=== PATIENT | male | born 1965 | race Caucasian/White ===

== ENCOUNTER 2020-01-15 17:40 | Emergency (ER) | payer MEDICAID ==
[~2020-01-15] VITALS: Ht 167.6 cm; Wt 81.2 kg
--- NOTE | 2020-01-15 17:55 | NUR ---
bib c/o blurring of vision x yesterday. was at clinic for hypertension. Patient a/ox4, breathing even and unlabored, no sob noted, needs attended, kept comfortable. Changed into a gown, attached to the engine monitor.
--- NOTE | 2020-01-15 18:10 | NUR ---
ER VISUAL ACUITY WITH GLASSES IS ZERO. PATIENT UNABLE TO SEE ANY LETTER. Addendum: 01/15/20 at 1811 by JESUS CORRECTION: PATIENT STATED HE COULDN'T SEE ANY LETTER FROM THE BOARD. BUT HAS LIGHT PERCEPTION.
--- NOTE | 2020-01-15 18:15 | NUR ---
IV LINE ESTABLISHED ON RIGHT AC G18, BLOOD DRAWN AND SENT TO LAB. US TECH AT BEDSIDE.
[2020-01-15 18:35] LABS: BASOPHILS # (AUTO) 0.1 /CMM (0.0-0.2); EOSINOPHILS % (AUTO) 1.5 % (0.0-6.0); HEMATOCRIT 47 % (39-51); HEMOGLOBIN 15.3 g/dL (13.5-17.5); LYMPHOCYTES # (AUTO) 2.6 /CMM (0.8-4.8); LYMPHOCYTES % (AUTO) 30.3 % (20.0-44.0); MEAN CORPUSCULAR HGB CONC 33 g/dl (31.0-36.0); MEAN CORPUSCULAR VOLUME 96 fL (80-96); MONOCYTES # (AUTO) 0.8 /CMM (0.1-1.30); MONOCYTES % (AUTO) 8.7 % (2.0-12.0); NEUTROPHILS % (AUTO) 58.5 % (43.0-81.0); PLATELET COUNT (AUTO) 108 /CMM (150-450); RED BLOOD CELL COUNT(AUTO) 4.86 MIL/uL (4.5-6.0); WHITE BLOOD COUNT (AUTO) 8.6 K/uL (4.3-11.0)
[2020-01-15 18:46] LABS: CALCIUM, SERUM 8.5 mg/dL (8.5-10.1); CREATININE 1.1 mg/dL (0.6-1.3); POTASSIUM 3.6 mmol/L (3.5-5.1)
[2020-01-15] MEDS ORDERED: IOHEXOL-350 100 ML VIAL IV ONE (18:55)
[2020-01-15] MEDS ORDERED: CT SWABBABLE VALVE TRANS SET 1 EA INFUS.SET MC ONE (18:56)
--- NOTE | 2020-01-15 18:59 | NUR ---
PATIENT TAKEN TO RADIOLOGY.
--- NOTE | 2020-01-15 19:00 | NUR ---
denise called,spoke with hetal, report given and requested that facesheet be faxed to [phone]
--- NOTE | 2020-01-15 19:05 | NUR ---
CALLED [facility], SPOKE TO CHAYO, FAXED FACESHEET AND CLINICALS
--- NOTE | 2020-01-15 19:13 | NUR ---
CALLED LOCATED WITHIN [facility] NO OPTHALMOLOGIST AVAILABLE.
--- NOTE | 2020-01-15 19:16 | NUR ---
CALLED [facility]SF[facility] LINE, NO BED AVAILABLE.
--- NOTE | 2020-01-15 19:19 | NUR ---
RETURNED FROM CT SCAN. HOOKED TO MONITOR.
--- NOTE | 2020-01-15 19:26 | NUR ---
CALLED LAB FOR COVID SWAB
--- NOTE | 2020-01-15 19:28 | NUR ---
10MINS SUBGRADE TESTER, TOOK AMLODIPINE 10MG
--- NOTE | 2020-01-15 19:30 | NUR ---
ENDORSED TO KRISSY QUICK.
--- NOTE | 2020-01-15 19:33 | NUR ---
CALLED [facility] FOR CTA READ
--- NOTE | 2020-01-15 19:43 | NUR ---
COVID SWAB SENT TO LAB
--- NOTE | 2020-01-15 20:00 | NUR ---
RECEIVED CALL FROM HERMAN WITH [facility], FAXED FACESHEET AND CLINICALS
--- NOTE | 2020-01-15 20:06 | NUR ---
CALLED [facility] SPOKE TO TOSHA, REFERRED TO THE [facility] DUE TO NO COMBINATION WINDOW INSTALLER
--- NOTE | 2020-01-15 20:15 | NUR ---
DR NGO ON THE PHONE WITH PHYSICIAN FROM [facility]
--- NOTE | 2020-01-15 20:17 | NUR ---
SPEAKING TO [facility] REGARDING PT. SPOKE TO PT AND HIS REGARDING CARE.
--- NOTE | 2020-01-15 20:54 | NUR ---
RECEIVED A CALL FROM CHAYO AT [facility]. PT GOT ACCPTED AT [facility] ER TO ER BY SAL ONEILL. # FOR REPORT: [phone]
--- NOTE | 2020-01-15 21:02 | NUR ---
COVID RESULT: NEG
--- NOTE | 2020-01-15 21:03 | NUR ---
[facility] TRANSFER TO [facility] HALINA ZAMORA ETA 2300 HOURS
--- NOTE | 2020-01-15 21:17 | NUR ---
UPGRADED TO [facility] ETA [id number]
[2020-01-15] MEDS ORDERED: hydrALAZINE HCL IV 20 MG VIAL IV ONE (21:30)
[2020-01-15] MEDS ORDERED: ENALAPRILAT INJ (1.25 MG/ML) 1.25 MG/ML VIAL IV ONE (21:41)
[2020-01-15] MEDS ORDERED: ENALAPRILAT INJ (1.25 MG/ML) 1.25 MG/ML VIAL IV PRN (22:00)
--- NOTE | 2020-01-15 22:04 | NUR ---
REPORT GIVEN TO NATHANIEL RN FOR GRETEL
[2020-01-15 23:05] VITALS: BP 156/78
--- NOTE | 2020-01-15 23:09 | NUR ---
REPORT GIVEN TO ANDRÉS. PT TRANSFERED.
--- NOTE | 2020-01-15 23:10 | NUR ---
[place] mail messenger contractor AT THE BED SIDE TO RECREATIONAL THERAPY AIDE THE PT. REPORT GIVEN
== END 2020-01-15 23:10 | disposition short-term general hospital (02) ==
LOC: ER 17:49
DX: H33.23 Serous retinal detachment, bilateral (principal); H43.13 Vitreous hemorrhage, bilateral; I10 Essential (primary) hypertension; E11.36 Type 2 diabetes mellitus with diabetic cataract; I65.23 Occlusion and stenosis of bilateral carotid arteries; Z20.828 Contact with and (suspected) exposure to other viral communicable diseases
CPT/HCPCS: 36415; 70496; 76536; 80048; 85025; 85730; 87426; 96374; 99291; C9803; J3490; Q9967

== ENCOUNTER 2022-10-19 14:10 | Emergency (ER) | payer MEDICAID, OTHER ==
[~2022-10-19] VITALS: Ht 165.1 cm; Wt 83.0 kg
--- NOTE | 2022-10-19 14:30 | NUR ---
BIBWIFE FOR C/O hip PAIN 01/16 X 2 WEEKS AND RIGHT FOREARM PAIN 08/16, this morning rt knee felt weak then fall in the bathroom. known diabetic and hpn pt. took meds regularly. AOX4, PUT ON MONITOR, PT IS WITH AT BEDSIDE
--- NOTE | 2022-10-19 15:05 | NUR ---
DR WINSTON AT BEDSIDE FOR EVAL
--- NOTE | 2022-10-19 15:11 | NUR ---
22G INSERTED RT HAND, BLD DRAWN, SENT TO LAB
[2022-10-19] MEDS ORDERED: KETOROLAC TROMETHAMINE 15 MG/ML VIAL ONE (15:13)
[2022-10-19] MEDS ORDERED: CYCLOBENZAPRINE 10 MG TABLET ONE (15:13)
[2022-10-19] MEDS: CYCLOBENZAPRINE 10 MG TABLET PO ONE (15:15)
[2022-10-19] MEDS: KETOROLAC TROMETHAMINE INJ 30 MG/ML VIAL IV ONE (15:15)
[2022-10-19 15:27] LABS: BASOPHILS # (AUTO) 0.2 K/uL (0.0-0.2); BASOPHILS % (AUTO) 1.6 % (0.0-2.0); EOSINOPHILS % (AUTO) 0.3 % (0.0-6.0); HEMATOCRIT 40 % (39-51); LYMPHOCYTES # (AUTO) 2.4 K/uL (0.8-4.8); LYMPHOCYTES % (AUTO) 22.3 % (20.0-44.0); MEAN CORPUSCULAR HGB CONC 33 g/dl (31.0-36.0); MEAN CORPUSCULAR VOLUME 89 fL (80-96); MONOCYTES # (AUTO) 0.8 K/uL (0.1-1.30); MONOCYTES % (AUTO) 7.2 % (2.0-12.0); NEUTROPHILS # (AUTO) 7.2 K/uL (1.8-8.9); NEUTROPHILS % (AUTO) 68.6 % (43.0-81.0); PLATELET COUNT (AUTO) 114 K/uL (150-450); RED BLOOD CELL COUNT(AUTO) 4.46 MIL/uL (4.5-6.0); WHITE BLOOD COUNT (AUTO) 10.6 K/uL (4.3-11.0)
[2022-10-19 16:56] LABS: BILIRUBIN,TOTAL 0.3 mg/dL (0.2-1.0); POTASSIUM 4.6 mmol/L (3.5-5.1); TOTAL PROTEIN, SERUM 7.7 g/dL (6.4-8.2)
[2022-10-19 17:36] LABS: CALCIUM, SERUM 8.8 mg/dL (8.5-10.1)
[2022-10-19 17:37] LABS: BILIRUBIN,DIRECT 0.1 mg/dL (0.0-0.2); CREATININE 2.2 mg/dL (0.6-1.3)
[2022-10-19 17:49] LABS: BILIRUBIN,URINE NEGATIVE (NEGATIVE); COLOR,URINE YELLOW (YELLOW); LEUKOCYTE ESTERASE ,URINE NEGATIVE (NEGATIVE); NITRITE, URINE NEGATIVE (NEGATIVE); PROTEIN,URINE 3+ mg/dl (NEGATIVE); UGLUCOSE NEGATIVE (NEGATIVE); UROBILINOGEN,URINE 0.2 EU/dL (0.2)
[2022-10-19] MEDS ORDERED: AMLODIPINE BESYLATE 10 MG TABLET ONE (17:58)
[2022-10-19] MEDS: AMLODIPINE BESYLATE 5 MG TABLET PO ONE (18:00)
[2022-10-19 18:16] VITALS: TEMP 98
[2022-10-19 18:54] LABS: BACTERIA,URINE None seen /HPF (None Seen); MUCUS,URINE Many /LPF (None Seen); SQUAMOUS EPITHELIAL CELL,UR None Seen /HPF (None Seen); WBC,URINE 0-2 /HPF (0-3)
--- NOTE | 2022-10-19 19:07 | NUR ---
Patient is resting comfortably in bed with eyes closed. Easily aroused.
--- NOTE | 2022-10-19 19:22 | NUR ---
GAVE REPORT TO NANCY QUICK FOR GRETEL
--- NOTE | 2022-10-19 19:24 | NUR ---
Collins murillo in EDM - 10/19/22 at 1954 by INÉS NOTIFIED BY DR. JACKSON THAT THE PT WILL BE TRANSFERED OUT AWAITING A CALL BACK FOR UPDATE
--- NOTE | 2022-10-19 19:48 | NUR ---
BLADDER SCAN DONE- 184ML OF URINE
--- NOTE | 2022-10-19 20:06 | NUR ---
[facility] CALLED WITH ACCEPTANCE INFO ROOM NUMBER [id number] UNDER THE CARE OF DR. BENJI MATHUR FOR TRANSPORT IS 1000 ALSO FAXED PT CLINICALS TO [phone]
--- NOTE | 2022-10-19 20:14 | NUR ---
CM [phone]
--- NOTE | 2022-10-19 20:28 | NUR ---
PER RADIOLOGY DEPARTMENT, TAX ANALYST WILL NOT GET HERE UNTIL ANOTHER [address] APARICIO MADE AWARE
[2022-10-19 20:38] VITALS: BP 159/83
--- NOTE | 2022-10-19 20:56 | NUR ---
[facility]
--- NOTE | 2022-10-19 21:01 | NUR ---
SPOKE TO CM AND INFORMED HIM THAT MRI WAS NOT ABLE TO BE COMPLETED HERE. DR. LEBLANC MADE AWARE, STILL ACCEPTING THE PATIENT.
== END 2022-10-19 21:10 | disposition short-term general hospital (02) ==
LOC: ER 14:12
DX: S99.811A Other specified injuries of right ankle, initial encounter (principal); I10 Essential (primary) hypertension; E11.9 Type 2 diabetes mellitus without complications; W19.XXXA Unspecified fall, initial encounter; Y93.89 Activity, other specified; Y92.89 Other specified places as the place of occurrence of the external cause; Y99.8 Other external cause status
CPT/HCPCS: 99285; 74176; 96374; 73564; 85025; 80048; 80076; 81001; 36415; J1885

== ENCOUNTER 2023-10-04 12:47 | Emergency (ER) | payer MEDICAID, OTHER ==
[~2023-10-04] VITALS: Ht 165.1 cm; Wt 78.5 kg
[2023-10-04 13:21] LABS: BASOPHILS # (AUTO) 0.1 K/uL (0.0-0.2); EOSINOPHILS # (AUTO) 0.2 K/uL (0.0-0.7); EOSINOPHILS % (AUTO) 1.4 % (0.0-6.0); HEMATOCRIT 41 % (39-51); HEMOGLOBIN 13.2 g/dL (13.5-17.5); LYMPHOCYTES # (AUTO) 2.3 K/uL (0.8-4.8); LYMPHOCYTES % (AUTO) 20.7 % (20.0-44.0); MEAN CORPUSCULAR HEMOGLOBIN 29 PG (26.0-33.0); MEAN CORPUSCULAR HGB CONC 32 g/dl (31.0-36.0); MEAN CORPUSCULAR VOLUME 89 fL (80-96); MONOCYTES # (AUTO) 0.6 K/uL (0.1-1.30); MONOCYTES % (AUTO) 5.5 % (2.0-12.0); NEUTROPHILS # (AUTO) 7.8 K/uL (1.8-8.9); NEUTROPHILS % (AUTO) 71.4 % (43.0-81.0); PLATELET COUNT (AUTO) 117 K/uL (150-450); RED BLOOD CELL COUNT(AUTO) 4.65 MIL/uL (4.5-6.0); RED CELL DISTRIBUTION WIDTH 15.1 % (11.5-15.0); WHITE BLOOD COUNT (AUTO) 10.9 K/uL (4.3-11.0)
[2023-10-04] MEDS ORDERED: DAPA10TA PO (13:25)
[2023-10-04] MEDS ORDERED: GLIP10TA11 PO (13:25)
[2023-10-04] MEDS ORDERED: CHLO25TA2 PO (13:25)
[2023-10-04 13:32] LABS: CALCIUM, SERUM 8.6 mg/dL (8.5-10.1); CARBON DIOXIDE 25 mmol/L (21-32); CHLORIDE 103 mmol/L (98-107); CREATININE 2.6 mg/dL (0.6-1.3); GLUCOSE 198 mg/dL (74-106); INR 0.98 (0.91-1.10); PARTIAL THROMBOPLASTIN TIME 31.4 SEC (24.3-34.3); POTASSIUM 4.3 mmol/L (3.5-5.1); PROTHROMBIN TIME 10.1 SECS (9.2-11.1); SODIUM SERUM 136 mmol/L (136-145); UREA NITROGEN, BLOOD 33 mg/dL (7-18)
[2023-10-04 14:00] VITALS: TEMP 98
[2023-10-04 15:19] LABS: APPEARANCE,URINE Clear (CLEAR); BILIRUBIN,URINE Negative (NEGATIVE); BLOOD, URINE Small Ery/uL (NEGATIVE); COLOR,URINE YELLOW (YELLOW); KETONES,URINE Negative (NEGATIVE); LEUKOCYTE ESTERASE ,URINE Negative (NEGATIVE); NITRITE, URINE Negative (NEGATIVE); PH,URINE 5.5 (5.0-8.0); PROTEIN,URINE >=300 mg/dl (NEGATIVE); UGLUCOSE 500 MG/DL mg/dL (NEGATIVE); UROBILINOGEN,URINE 0.2 EU/dL (0.2)
[2023-10-04 15:29] LABS: ADD URINE CULTURE NO; BACTERIA,URINE None seen /HPF (None Seen); SQUAMOUS EPITHELIAL CELL,UR None Seen /HPF (None Seen); WBC,URINE NONE SEEN /HPF (0-3)
[2023-10-04 16:08] VITALS: BP 171/93; O2SAT 97
[2023-10-04] MEDS ORDERED: ASPIRIN 300 MG/SUPP.RECT RC ONE (16:42)
[2023-10-04] MEDS: ASPIRIN 300 MG/SUPP.RECT RC ONE (16:45)
== END 2023-10-04 17:20 | disposition short-term general hospital (02) ==
LOC: ER 12:53
DX: R47.81 Slurred speech (principal); R29.810 Facial weakness; I10 Essential (primary) hypertension; E11.9 Type 2 diabetes mellitus without complications; F10.10 Alcohol abuse, uncomplicated; Y90.9 Presence of alcohol in blood, level not specified
CPT/HCPCS: 36415; 70450-TC; 80048-TC; 81001; 84484-TC; 85025-TC; 85730-TC